=== PATIENT | female | born 1980 | race Caucasian/White ===

== ENCOUNTER 2017-06-19 20:22 | Emergency (ER) | payer MEDICAID ==
[~2017-06-19] VITALS: Ht 144.8 cm; Wt 73.0 kg
[~2017-06-19 20:22] MED LIST: ALB0.5UD IH; ALBU18HF2 IH; ALBU6.7H INH; AMOX500C2 PO; DIPH-423 PO; EPIN0.3P8 IM; FAMO40TA73 PO; ONDA4TAB12 PO; PRED50TA PO
[2017-06-19] MEDS ORDERED: ondansetron/PF 4mg/2ml inj IV ONE (21:20)
[2017-06-19] MEDS ORDERED: pantoprazole 40 MG vial IV ONE (21:20)
[2017-06-19] MEDS ORDERED: normal saline 1000ML IV soln IVB ONE (21:20)
[2017-06-19 21:34] LABS: BASOPHILS % (AUTO) 0.1 % (0-1); EOSINOPHILS # (AUTO) 0.2 X10'3 (0-0.9); EOSINOPHILS % (AUTO) 1.7 % (0-6); HEMOGLOBIN 11.4 g/dl (12.0-16.0); LYMPHOCYTES # (AUTO) 1.6 X10'3 (1.1-4.8); LYMPHOCYTES % (AUTO) 14.4 % (21-51); MEAN CORPUSCULAR HEMOGLOBIN 31.1 PG (27.0-31.0); MEAN CORPUSCULAR HGB CONC 34.4 % (33.0-36.5); MEAN CORPUSCULAR VOLUME 90.4 FL (78-98); MEAN PLATELET VOLUME 8.5 FL (7.4-10.4); MONOCYTES # (AUTO) 0.5 X10'3 (0-0.9); MONOCYTES % (AUTO) 4.4 % (2-12); NEUTROPHILS % (AUTO) 79.4 % (42-75); PLATELET COUNT 263 X10'3 (140-440); RED BLOOD COUNT 3.65 X10'6 (4.20-5.60); RED CELL DISTRIBUTION WIDTH 13.1 % (11.5-14.5); WHITE BLOOD COUNT 11.3 X10'3 (4.5-11.0)
[2017-06-19 21:46] LABS: INR 1.1 INR; PROTHROMBIN TIME 10.9 SECONDS (9.0-12.0)
[2017-06-19 21:49] LABS: ALANINE AMINOTRANSFERASE 23 U/L (12-78); ALBUMIN 3.5 G/DL (3.4-5.0); ALBUMIN/GLOBULIN RATIO 0.7 (1.1-1.5); ALKALINE PHOSPHATASE 62 IU/L (46-116); ASPARTATE AMINO TRANSFERASE 21 U/L (10-37); BILIRUBIN,TOTAL 0.3 MG/DL (0.1-1.0); BLOOD UREA NITROGEN 15 MG/DL (7-18); BUN/CREATININE RATIO 18.8 (6.6-38.0); CALCIUM 8.6 MG/DL (8.5-10.1); CHLORIDE 101 MMOL/L (99-107); GLUCOSE 87 MG/DL (70-104); LIPASE 98 U/L (73-393); POTASSIUM 3.7 MMOL/L (3.5-5.1); TOTAL CARBON DIOXIDE 26.3 MMOL/L (24-32); TOTAL PROTEIN 8.6 G/DL (6.4-8.2); eGFR 82 ML/MIN
[2017-06-19 21:52] LABS: SODIUM 138 MMOL/L (135-145)
[2017-06-19 21:57] LABS: ANION GAP 11 (8-16)
[2017-06-19 22:35] LABS: URINE HCG NEGATIVE (NEG)
[2017-06-19 22:36] LABS: CLARITY,URINE CLEAR (Clear); COLOR,URINE YELLOW (Yellow); GLUCOSE, URINE NEGATIVE (Neg); KETONES,URINE NEGATIVE (Neg); LEUKOCYTE ESTERASE ,URINE SMALL (Neg); NITRITES, URINE NEGATIVE (Neg); OCCULT BLOOD,URINE NEGATIVE (Neg); PROTEIN,URINE NEGATIVE (Neg); UROBILINOGEN,URINE 0.2 E.U/dL (0.2-1.0)
[2017-06-19 22:38] LABS: UA COLLECTION TYPE CLN CATCH MIDSTREAM
[2017-06-19 22:47] LABS: RBC,URINE 0-2 /HPF (0-2)
[2017-06-19 22:48] LABS: BACTERIA,URINE 1+ /HPF (Neg); SQUAMOUS EPITHELIAL CELL,UR MODERATE /LPF (FEW)
[2017-06-19 23:00] LABS: TOTAL CELLS COUNTED 100
[2017-06-19 23:01] LABS: PLATELET ESTIMATE NORMAL; TOXIC GRANULATION 1+
[2017-06-19] MEDS ORDERED: iohexol 300mg/ml 100ml inj. ONE (23:25)
[2017-06-19] MEDS ORDERED: dicyclomine 10mg/ml 2ml ampule IM ONE (23:55)
[2017-06-20] MEDS ORDERED: ONDA4TAB12 PO (00:22)
[2017-06-20] MEDS ORDERED: DICY10CA88 PO (00:22)
[2017-06-20] MEDS ORDERED: TRAM50TA2 PO (00:48)
[2017-06-20] MEDS ORDERED: CIPR-230 PO (00:48)
[2017-06-20] MEDS ORDERED: METR500T4 PO (00:48)
[2017-06-20 01:07] VITALS: BP 97/58
== END 2017-06-20 01:10 | disposition home or self-care (01) ==
LOC: ER 20:23
DX: K52.9 Noninfective gastroenteritis and colitis, unspecified (principal); J45.909 Unspecified asthma, uncomplicated; Z56.0 Unemployment, unspecified; Z88.6 Allergy status to analgesic agent; Z79.899 Other long term (current) drug therapy
CPT/HCPCS: 36415; 74177; 80053; 81001; 81025; 83690; 85025; 85610; 87045; 87046; 87088; 96361; 96372; 96374; 96375; 99285; C9113; J0500; J2405; J7030; Q9967; 87324; 87449

== ENCOUNTER 2017-09-23 12:35 | Emergency (ER) | payer MEDICAID ==
[~2017-09-23] VITALS: Ht 144.8 cm; Wt 70.4 kg
[~2017-09-23 12:35] MED LIST changes: +DICY10CA88 PO
[2017-09-23] MEDS ORDERED: ondansetron/PF 4mg/2ml inj IV ONE (13:00)
[2017-09-23] MEDS ORDERED: normal saline 1000ML IV soln IVB ONE (13:00)
[2017-09-23 13:13] LABS: URINE HCG NEGATIVE (NEG)
[2017-09-23 13:16] LABS: COLOR,URINE YELLOW (Yellow); GLUCOSE, URINE NEGATIVE (Neg); KETONES,URINE TRACE mg/dl (Neg); LEUKOCYTE ESTERASE ,URINE SMALL (Neg); NITRITES, URINE POSITIVE (Neg); OCCULT BLOOD,URINE TRACE-INTACT (Neg); PROTEIN,URINE 100 mg/dl (Neg); UROBILINOGEN,URINE 0.2 E.U/dL (0.2-1.0)
[2017-09-23 13:19] LABS: UA COLLECTION TYPE VOIDED
[2017-09-23 13:21] LABS: CLARITY,URINE CLOUDY (Clear)
[2017-09-23 13:22] LABS: BASOPHILS % (AUTO) 0 % (0-1); EOSINOPHILS % (AUTO) 0.2 % (0-6); HEMATOCRIT 34.6 % (35.0-45.0); HEMOGLOBIN 11.9 g/dl (12.0-16.0); LYMPHOCYTES # (AUTO) 0.6 X10'3 (1.1-4.8); LYMPHOCYTES % (AUTO) 4.7 % (21-51); MEAN CORPUSCULAR HEMOGLOBIN 31.1 PG (27.0-31.0); MEAN CORPUSCULAR HGB CONC 34.4 % (33.0-36.5); MEAN CORPUSCULAR VOLUME 90.3 FL (78-98); MEAN PLATELET VOLUME 8.4 FL (7.4-10.4); MONOCYTES # (AUTO) 0.2 X10'3 (0-0.9); MONOCYTES % (AUTO) 1.8 % (2-12); NEUTROPHILS # (AUTO) 12.7 X10'3 (1.8-7.7); NEUTROPHILS % (AUTO) 93.3 % (42-75); PLATELET COUNT 251 X10'3 (140-440); RED BLOOD COUNT 3.83 X10'6 (4.20-5.60); RED CELL DISTRIBUTION WIDTH 13.6 % (11.5-14.5); WHITE BLOOD COUNT 13.6 X10'3 (4.5-11.0)
[2017-09-23 13:25] LABS: BACTERIA,URINE 2+ /HPF (Neg); RBC,URINE 0-2 /HPF (0-2); SQUAMOUS EPITHELIAL CELL,UR MODERATE /LPF (FEW)
[2017-09-23 13:26] LABS: MUCUS STRANDS FEW /LPF (Neg); WBC CLUMPS,URINE FEW /HPF (NEGATIVE)
[2017-09-23 13:34] LABS: ALANINE AMINOTRANSFERASE 24 U/L (12-78); ALBUMIN 3.5 G/DL (3.4-5.0); ALBUMIN/GLOBULIN RATIO 0.7 (1.1-1.5); ALKALINE PHOSPHATASE 78 IU/L (46-116); ANION GAP 12 (8-16); ASPARTATE AMINO TRANSFERASE 21 U/L (10-37); BILIRUBIN,TOTAL 0.7 MG/DL (0.1-1.0); BLOOD UREA NITROGEN 21 MG/DL (7-18); BUN/CREATININE RATIO 21.2 (6.6-38.0); CALCIUM 7.9 MG/DL (8.5-10.1); CHLORIDE 97 MMOL/L (99-107); CREATININE 0.99 MG/DL (0.40-0.90); GLUCOSE 122 MG/DL (70-104); LIPASE 87 U/L (73-393); POTASSIUM 3.2 MMOL/L (3.5-5.1); SODIUM 134 MMOL/L (135-145); TOTAL CARBON DIOXIDE 24.6 MMOL/L (24-32); TOTAL PROTEIN 8.4 G/DL (6.4-8.2); eGFR 63 ML/MIN
[2017-09-23] MEDS ORDERED: potassium Cl oral solution 20 MEQ/15 ML PO ONE (14:20)
[2017-09-23] MEDS ORDERED: morphine 4 MG/ML inj SYRINge IV ONE (14:25)
[2017-09-23] MEDS ORDERED: ONDA4TAB9 SL (14:26)
[2017-09-23] MEDS ORDERED: BACDS PO (14:26)
[2017-09-23 15:17] VITALS: BP 105/60
[2017-09-23 15:40] LABS: BANDS% (MANUAL) 8 % (0-10); NEUTROPHILS % (MANUAL) 88 % (42-75); TOTAL CELLS COUNTED 100
[2017-09-23 15:41] LABS: LYMPHOCYTES % (MANUAL) 3 % (21-51); MONOCYTES % (MANUAL) 1 % (2-12); PLATELET ESTIMATE NORMAL
[2017-09-23 15:42] LABS: LARGE PLATELETS FEW; STOMATOCYTES 1+; TOXIC VACUOLATION FEW
== END 2017-09-23 15:18 | disposition home or self-care (01) ==
LOC: ER 12:36
DX: K52.9 Noninfective gastroenteritis and colitis, unspecified (principal); N39.0 Urinary tract infection, site not specified; E86.0 Dehydration; E87.5 Hyperkalemia; J45.909 Unspecified asthma, uncomplicated; Z88.6 Allergy status to analgesic agent; Z79.899 Other long term (current) drug therapy; Z56.0 Unemployment, unspecified
CPT/HCPCS: 36415; 74176; 80053; 81001; 81025; 83690; 85025; 87088; 96361; 96374; 96375; 99285; J2270; J2405; J7030; 87077; 87186

== ENCOUNTER 2018-01-31 15:27 | Inpatient (IN) | payer MEDICAID ==
[~2018-01-31] VITALS: Ht 144.8 cm; Wt 73.9 kg
[~2018-01-31 15:27] MED LIST changes: +CEPH-572 PO
[2018-01-31 16:40] LABS: BASOPHILS # (AUTO) 0.1 X10'3 (0-0.2); BASOPHILS % (AUTO) 0.2 % (0-1); EOSINOPHILS # (AUTO) 0.5 X10'3 (0-0.9); EOSINOPHILS % (AUTO) 1.7 % (0-6); HEMATOCRIT 25.2 % (35.0-45.0); HEMOGLOBIN 8.3 g/dl (12.0-16.0); LYMPHOCYTES # (AUTO) 2.4 X10'3 (1.1-4.8); LYMPHOCYTES % (AUTO) 8.5 % (21-51); MEAN CORPUSCULAR HGB CONC 32.9 % (33.0-36.5); MEAN PLATELET VOLUME 7.3 FL (7.4-10.4); MONOCYTES # (AUTO) 1.6 X10'3 (0-0.9); MONOCYTES % (AUTO) 5.7 % (2-12); NEUTROPHILS # (AUTO) 24.2 X10'3 (1.8-7.7); NEUTROPHILS % (AUTO) 83.9 % (42-75); PLATELET COUNT 469 X10'3 (140-440); RED BLOOD COUNT 2.77 X10'6 (4.20-5.60); RED CELL DISTRIBUTION WIDTH 14.2 % (11.5-14.5)
[2018-01-31 16:45] LABS: WHITE BLOOD COUNT 28.9 X10'3 (4.5-11.0)
[2018-01-31] MEDS ORDERED: HYDROcodone/acetaminophen 10/325mg tab PO ONE (16:55)
[2018-01-31 16:56] LABS: ALANINE AMINOTRANSFERASE 43 U/L (12-78); ALBUMIN/GLOBULIN RATIO 0.3 (1.1-1.5); ALKALINE PHOSPHATASE 197 IU/L (46-116); ANION GAP 11 (8-16); ASPARTATE AMINO TRANSFERASE 59 U/L (10-37); BLOOD UREA NITROGEN 26 MG/DL (7-18); BUN/CREATININE RATIO 26.5 (6.6-38.0); CALCIUM 9.1 MG/DL (8.5-10.1); CHLORIDE 98 MMOL/L (99-107); CREATININE 0.98 MG/DL (0.40-0.90); GLUCOSE 105 MG/DL (70-104); POTASSIUM 3.1 MMOL/L (3.5-5.1); SODIUM 133 MMOL/L (135-145); TOTAL CARBON DIOXIDE 23.8 MMOL/L (24-32); TOTAL PROTEIN 7.9 G/DL (6.4-8.2); eGFR 64 ML/MIN
[2018-01-31] MEDS ORDERED: iohexol 300mg/ml 100ml inj. ONE (17:03)
[2018-01-31 17:13] LABS: PLATELET ESTIMATE NORMAL; TOTAL CELLS COUNTED 100
[2018-01-31 17:14] LABS: TOXIC VACUOLATION FEW
[2018-01-31] MEDS ORDERED: potassium Cl 20 mEq SR tablet PO STA (17:19)
[2018-01-31] MEDS ORDERED: normal saline 1000ML IV soln IVB ONE (17:20)
[2018-01-31] MEDS ORDERED: normal saline 1000ML IV soln IV ONE (17:20)
[2018-01-31] MEDS ORDERED: vancomycin/NS 1 GM ADD-VANTAGE 250 ML X 1 DOSE IV ONE (17:50)
[2018-01-31 18:14] LABS: URINE HCG NEGATIVE (NEG)
[2018-01-31 18:27] LABS: URINE AMPHETAMINE SCREEN NEGATIVE (Neg); URINE BARBITUATE SCREEN NEGATIVE (Neg); URINE BENZODIAZEPINES SCREEN NEGATIVE (Neg); URINE CANNABINOID SCREEN NEGATIVE (Neg); URINE COCAINE SCREEN NEGATIVE (Neg); URINE METHADONE SCREEN NEGATIVE (Neg); URINE OPIATE SCREEN NEGATIVE (Neg); URINE PHENCYCLIDINE SCREEN NEGATIVE (Neg)
[2018-01-31 18:44] LABS: CLARITY,URINE SLIGHTLY CLOUDY (Clear); COLOR,URINE YELLOW (Yellow); GLUCOSE, URINE NEGATIVE (Neg); KETONES,URINE NEGATIVE (Neg); LEUKOCYTE ESTERASE ,URINE NEGATIVE (Neg); NITRITES, URINE NEGATIVE (Neg); OCCULT BLOOD,URINE NEGATIVE (Neg); PROTEIN,URINE 30 mg/dl (Neg)
[2018-01-31 18:45] LABS: UA COLLECTION TYPE CLN CATCH MIDSTREAM
[2018-01-31 18:52] LABS: BACTERIA,URINE 2+ /HPF (Neg); RBC,URINE NONE SEEN /HPF (0-2); SQUAMOUS EPITHELIAL CELL,UR MANY /LPF (FEW); WBC,URINE 0-4 /HPF (0-4)
[2018-01-31 18:53] LABS: MUCUS STRANDS FEW /LPF (Neg); TRANSITIONAL EPI CELLS,URINE FEW /HPF
[2018-01-31 18:54] LABS: FINE GRANULAR CAST 0-3 /LPF (NEGATIVE)
[2018-01-31] MEDS ORDERED: CEPH-572 PO (19:41)
[2018-01-31] MEDS ORDERED: IBUP-1984 PO (19:43)
[2018-01-31] MEDS ORDERED: potassium Cl 40MEQ/NS 500ml 500 ML IV PRN ×2 (20:20)
[2018-01-31] MEDS ORDERED: HYDROcodone/acetaminophen 5mg/325mg tablet PO PRN (20:20)
[2018-01-31] MEDS ORDERED: acetaminophen 325mg tablet PO PRN (20:20)
[2018-01-31] MEDS ORDERED: potassium Cl 20 mEq SR tablet PO PRN ×2 (20:20)
[2018-01-31] MEDS ORDERED: magnesium hydroxide 30ml (MOM) UD suspension PO PRN (20:20)
[2018-01-31] MEDS: normal saline 1000ml 1,000 ML IV SCH ×2 (20:45→22:03)
[2018-01-31] MEDS ORDERED: albuterol 2.5 MG/3 ML nebule NEB PRN (20:55)
[2018-01-31] MEDS ORDERED: temazepam 15mg capsule PO PRN (21:00)
[2018-01-31 21:45] VITALS: BP 106/68
[2018-01-31] MEDS: HYDROcodone/acetaminophen 10/325mg tab PO PRN (22:05)
[2018-01-31 23:00] VITALS: BP 102/65
[2018-02-01] MEDS: HYDROcodone/acetaminophen 10/325mg tab PO PRN ×4 (02:41→19:26)
[2018-02-01 03:00] VITALS: BP 105/66
[2018-02-01 06:00] VITALS: BP 98/57
[2018-02-01 06:51] LABS: BASOPHILS % (AUTO) 0.1 % (0-1); EOSINOPHILS # (AUTO) 0.6 X10'3 (0-0.9); EOSINOPHILS % (AUTO) 2.4 % (0-6); HEMATOCRIT 24.3 % (35.0-45.0); HEMOGLOBIN 7.9 g/dl (12.0-16.0); LYMPHOCYTES # (AUTO) 1.8 X10'3 (1.1-4.8); LYMPHOCYTES % (AUTO) 7.8 % (21-51); MEAN CORPUSCULAR HEMOGLOBIN 30.2 PG (27.0-31.0); MEAN CORPUSCULAR HGB CONC 32.8 % (33.0-36.5); MEAN CORPUSCULAR VOLUME 92.3 FL (78-98); MEAN PLATELET VOLUME 7.7 FL (7.4-10.4); MONOCYTES # (AUTO) 1.6 X10'3 (0-0.9); MONOCYTES % (AUTO) 6.8 % (2-12); NEUTROPHILS # (AUTO) 19.5 X10'3 (1.8-7.7); NEUTROPHILS % (AUTO) 82.9 % (42-75); PLATELET COUNT 474 X10'3 (140-440); RED BLOOD COUNT 2.63 X10'6 (4.20-5.60); RED CELL DISTRIBUTION WIDTH 14.8 % (11.5-14.5); WHITE BLOOD COUNT 23.5 X10'3 (4.5-11.0)
[2018-02-01 07:12] LABS: ALBUMIN 1.8 G/DL (3.4-5.0); ANION GAP 10 (8-16); BLOOD UREA NITROGEN 20 MG/DL (7-18); BUN/CREATININE RATIO 23.3 (6.6-38.0); CALCIUM 8.9 MG/DL (8.5-10.1); CHLORIDE 101 MMOL/L (99-107); CREATININE 0.86 MG/DL (0.40-0.90); GLUCOSE 81 MG/DL (70-104); SODIUM 133 MMOL/L (135-145); TOTAL CARBON DIOXIDE 21.6 MMOL/L (24-32); eGFR 75 ML/MIN
[2018-02-01] MEDS: vancomycin/NS 1 GM ADD-VANTAGE 250 ML IV SCH ×2 (07:35→19:27)
[2018-02-01] MEDS: levoFLOXACIN-Levaquin 750MG/D5 150 ML IV SCH (07:35)
[2018-02-01] MEDS: enoxaparin 40mg/0.4ml syringe SUBCUT SCH (07:36)
[2018-02-01] MEDS: mag hydrox/Alum hydrox/simeth 30ml oral suspension PO PRN ×2 (07:37→14:05)
[2018-02-01] MEDS: K and/or MAG REPLACEMENT MC SCH (08:00)
[2018-02-01] MEDS ORDERED: morphine 4 MG/ML inj SYRINge IV PRN (08:30)
[2018-02-01] MEDS ORDERED: pneumococcal 23-VAL P-sac vacc 25 mcg/0.5ml vial IMVAC ONE (10:00)
[2018-02-01 11:00] VITALS: BP 92/42
[2018-02-01] MEDS ORDERED: iohexol 300mg/ml 100ml inj. ONE (12:38)
[2018-02-01 15:00] VITALS: BP 113/66
[2018-02-01] MEDS: ondansetron/PF 4mg/2ml inj IV PRN (15:03)
[2018-02-01] MEDS: normal saline 1000ml 1,000 ML IV SCH (16:17)
[2018-02-01 18:00] VITALS: BP 102/55
[2018-02-01 22:00] VITALS: BP 110/59
[2018-02-02] MEDS: HYDROcodone/acetaminophen 10/325mg tab PO PRN ×3 (00:26→22:52)
[2018-02-02] MEDS: normal saline 1000ml 1,000 ML IV SCH ×3 (01:00→22:17)
[2018-02-02 02:00] VITALS: BP 107/57
[2018-02-02 07:00] VITALS: BP 105/62
[2018-02-02] MEDS ORDERED: VANCOMYCIN LEVEL IV ONE (07:30)
[2018-02-02] MEDS: levoFLOXACIN-Levaquin 750MG/D5 150 ML IV SCH (07:47)
[2018-02-02] MEDS: vancomycin/NS 1 GM ADD-VANTAGE 250 ML IV SCH ×2 (07:47→19:41)
[2018-02-02] MEDS: enoxaparin 40mg/0.4ml syringe SUBCUT SCH (07:47)
[2018-02-02] MEDS: K and/or MAG REPLACEMENT MC SCH (08:00)
[2018-02-02 08:11] LABS: BASOPHILS # (AUTO) 0.1 X10'3 (0-0.2); BASOPHILS % (AUTO) 0.5 % (0-1); EOSINOPHILS # (AUTO) 0.4 X10'3 (0-0.9); EOSINOPHILS % (AUTO) 1.8 % (0-6); HEMOGLOBIN 7.9 g/dl (12.0-16.0); LYMPHOCYTES # (AUTO) 2.5 X10'3 (1.1-4.8); LYMPHOCYTES % (AUTO) 11.5 % (21-51); MEAN CORPUSCULAR HEMOGLOBIN 30.3 PG (27.0-31.0); MEAN CORPUSCULAR HGB CONC 33.1 % (33.0-36.5); MEAN CORPUSCULAR VOLUME 91.8 FL (78-98); MEAN PLATELET VOLUME 7.4 FL (7.4-10.4); MONOCYTES # (AUTO) 1.6 X10'3 (0-0.9); MONOCYTES % (AUTO) 7.5 % (2-12); NEUTROPHILS # (AUTO) 17.2 X10'3 (1.8-7.7); NEUTROPHILS % (AUTO) 78.7 % (42-75); PLATELET COUNT 465 X10'3 (140-440); RED BLOOD COUNT 2.61 X10'6 (4.20-5.60); RED CELL DISTRIBUTION WIDTH 14.6 % (11.5-14.5); WHITE BLOOD COUNT 21.9 X10'3 (4.5-11.0)
[2018-02-02 08:33] LABS: LARGE PLATELETS FEW; PLATELET ESTIMATE INCREASED; TOTAL CELLS COUNTED 100
[2018-02-02 08:36] LABS: ALBUMIN 1.8 G/DL (3.4-5.0); ANION GAP 10 (8-16); BLOOD UREA NITROGEN 15 MG/DL (7-18); BUN/CREATININE RATIO 16.3 (6.6-38.0); CALCIUM 8.8 MG/DL (8.5-10.1); CHLORIDE 98 MMOL/L (99-107); CREATININE 0.92 MG/DL (0.40-0.90); GLUCOSE 115 MG/DL (70-104); SODIUM 130 MMOL/L (135-145); TOTAL CARBON DIOXIDE 21.8 MMOL/L (24-32); VANCOMYCIN,TROUGH 16.5 UG/ML (6.0-14.0); eGFR 69 ML/MIN
[2018-02-02 11:00] VITALS: BP 103/66
[2018-02-02 15:00] VITALS: BP 104/62
[2018-02-02 18:00] VITALS: BP 106/88
[2018-02-02 23:00] VITALS: BP 110/67
[2018-02-03 02:58] VITALS: BP 102/54
[2018-02-03 05:19] LABS: BASOPHILS # (AUTO) 0.1 X10'3 (0-0.2); BASOPHILS % (AUTO) 0.3 % (0-1); EOSINOPHILS # (AUTO) 0.3 X10'3 (0-0.9); EOSINOPHILS % (AUTO) 1.8 % (0-6); LYMPHOCYTES # (AUTO) 1.4 X10'3 (1.1-4.8); LYMPHOCYTES % (AUTO) 8.2 % (21-51); MEAN CORPUSCULAR HEMOGLOBIN 30.4 PG (27.0-31.0); MEAN CORPUSCULAR HGB CONC 33.2 % (33.0-36.5); MEAN CORPUSCULAR VOLUME 91.5 FL (78-98); MEAN PLATELET VOLUME 7.7 FL (7.4-10.4); MONOCYTES # (AUTO) 0.9 X10'3 (0-0.9); MONOCYTES % (AUTO) 5.3 % (2-12); NEUTROPHILS # (AUTO) 14.5 X10'3 (1.8-7.7); NEUTROPHILS % (AUTO) 84.4 % (42-75); PLATELET COUNT 417 X10'3 (140-440); RED BLOOD COUNT 2.37 X10'6 (4.20-5.60); RED CELL DISTRIBUTION WIDTH 14.8 % (11.5-14.5); WHITE BLOOD COUNT 17.2 X10'3 (4.5-11.0)
[2018-02-03 05:22] LABS: HEMATOCRIT 21.7 % (35.0-45.0); HEMOGLOBIN 7.2 g/dl (12.0-16.0)
[2018-02-03 05:44] LABS: ALBUMIN 1.5 G/DL (3.4-5.0); ANION GAP 12 (8-16); BLOOD UREA NITROGEN 12 MG/DL (7-18); BUN/CREATININE RATIO 15.6 (6.6-38.0); CALCIUM 8.7 MG/DL (8.5-10.1); CHLORIDE 100 MMOL/L (99-107); CREATININE 0.77 MG/DL (0.40-0.90); GLUCOSE 130 MG/DL (70-104); POTASSIUM 3.6 MMOL/L (3.5-5.1); SODIUM 133 MMOL/L (135-145); TOTAL CARBON DIOXIDE 20.9 MMOL/L (24-32); eGFR 85 ML/MIN
[2018-02-03 07:00] VITALS: BP 112/71
[2018-02-03 07:00] LABS: PLATELET ESTIMATE NORMAL; TOTAL CELLS COUNTED 100
[2018-02-03] MEDS: enoxaparin 40mg/0.4ml syringe SUBCUT SCH (07:38)
[2018-02-03] MEDS: levoFLOXACIN-Levaquin 750MG/D5 150 ML IV SCH (07:38)
[2018-02-03] MEDS: normal saline 1000ml 1,000 ML IV SCH ×2 (07:39→19:45)
[2018-02-03] MEDS: K and/or MAG REPLACEMENT MC SCH (08:00)
[2018-02-03] MEDS: ondansetron/PF 4mg/2ml inj IV PRN ×2 (09:04→18:10)
[2018-02-03] MEDS: vancomycin/NS 1 GM ADD-VANTAGE 250 ML IV SCH ×2 (09:15→19:45)
[2018-02-03 11:00] VITALS: BP 117/69
[2018-02-03] MEDS ORDERED: Permethrin Cream 60gm TP ONE ×2 (11:45→21:00)
[2018-02-03 15:00] VITALS: BP 110/63
[2018-02-03 15:13] LABS: HIV ANTIBODY 1&2 RAPID NON-REACTIVE (Neg)
[2018-02-03] MEDS: HYDROcodone/acetaminophen 10/325mg tab PO PRN ×2 (15:39→19:51)
[2018-02-03 15:48] LABS: CREATINE KINASE 25 U/L (26-192)
[2018-02-03 19:00] VITALS: BP 107/58
[2018-02-03] MEDS ORDERED: pneumococcal 23-VAL P-sac vacc 25 mcg/0.5ml vial IMVAC ONE (19:40)
[2018-02-03 21:51] VITALS: BP 99/57
[2018-02-04] VITALS (12 sets, daily range): BP systolic 92–116; BP diastolic 53–67
[2018-02-04] MEDS: normal saline 1000ml 1,000 ML IV SCH ×2 (04:17→07:57)
[2018-02-04] MEDS: HYDROcodone/acetaminophen 10/325mg tab PO PRN ×2 (04:18→12:08)
[2018-02-04 07:31] LABS: BASOPHILS # (AUTO) 0.1 X10'3 (0-0.2); BASOPHILS % (AUTO) 0.4 % (0-1); EOSINOPHILS # (AUTO) 0.3 X10'3 (0-0.9); EOSINOPHILS % (AUTO) 2.5 % (0-6); LYMPHOCYTES # (AUTO) 1.4 X10'3 (1.1-4.8); LYMPHOCYTES % (AUTO) 10.3 % (21-51); MEAN CORPUSCULAR HEMOGLOBIN 30.2 PG (27.0-31.0); MEAN CORPUSCULAR HGB CONC 32.8 % (33.0-36.5); MEAN CORPUSCULAR VOLUME 91.9 FL (78-98); MEAN PLATELET VOLUME 7.9 FL (7.4-10.4); MONOCYTES # (AUTO) 0.9 X10'3 (0-0.9); MONOCYTES % (AUTO) 6.5 % (2-12); NEUTROPHILS # (AUTO) 10.8 X10'3 (1.8-7.7); NEUTROPHILS % (AUTO) 80.3 % (42-75); PLATELET COUNT 450 X10'3 (140-440); RED BLOOD COUNT 2.08 X10'6 (4.20-5.60); WHITE BLOOD COUNT 13.5 X10'3 (4.5-11.0)
[2018-02-04 07:35] LABS: ALBUMIN 1.6 G/DL (3.4-5.0); ANION GAP 12 (8-16); BLOOD UREA NITROGEN 12 MG/DL (7-18); BUN/CREATININE RATIO 11.9 (6.6-38.0); CALCIUM 8.3 MG/DL (8.5-10.1); CHLORIDE 99 MMOL/L (99-107); CREATININE 1.01 MG/DL (0.40-0.90); GLUCOSE 141 MG/DL (70-104); HEMATOCRIT 19.1 % (35.0-45.0); HEMOGLOBIN 6.3 g/dl (12.0-16.0); POTASSIUM 3.7 MMOL/L (3.5-5.1); SODIUM 133 MMOL/L (135-145); TOTAL CARBON DIOXIDE 22.5 MMOL/L (24-32); eGFR 62 ML/MIN
[2018-02-04] MEDS: lactobacillus rhamnosus 10,000 MMU CELLS/CAPSULE PO SCH ×2 (07:57→20:01)
[2018-02-04] MEDS: vancomycin/NS 1 GM ADD-VANTAGE 250 ML IV SCH ×2 (07:57→19:58)
[2018-02-04] MEDS: enoxaparin 40mg/0.4ml syringe SUBCUT SCH (07:58)
[2018-02-04] MEDS: K and/or MAG REPLACEMENT MC SCH (08:00)
[2018-02-04 09:32] LABS: % IRON SATURATION 13 % (11-46); IRON 26 UG/DL (49-151); TOTAL IRON BINDING CAPACITY 200 UG/DL (259-388)
[2018-02-04] MEDS: mag hydrox/Alum hydrox/simeth 30ml oral suspension PO PRN ×2 (11:23→16:08)
[2018-02-04] MEDS ORDERED: hydrOXYzine 25 MG tablet PO ONE (17:05)
[2018-02-04 17:17] LABS: BASOPHILS % (AUTO) 0.4 % (0-1); EOSINOPHILS # (AUTO) 0.3 X10'3 (0-0.9); EOSINOPHILS % (AUTO) 1.9 % (0-6); HEMATOCRIT 25.7 % (35.0-45.0); HEMOGLOBIN 8.5 g/dl (12.0-16.0); LYMPHOCYTES # (AUTO) 1.8 X10'3 (1.1-4.8); LYMPHOCYTES % (AUTO) 13.5 % (21-51); MEAN CORPUSCULAR HEMOGLOBIN 29.4 PG (27.0-31.0); MEAN CORPUSCULAR VOLUME 89.1 FL (78-98); MEAN PLATELET VOLUME 8.6 FL (7.4-10.4); MONOCYTES # (AUTO) 0.7 X10'3 (0-0.9); MONOCYTES % (AUTO) 5.4 % (2-12); NEUTROPHILS # (AUTO) 10.4 X10'3 (1.8-7.7); NEUTROPHILS % (AUTO) 78.8 % (42-75); PLATELET COUNT 381 X10'3 (140-440); RED BLOOD COUNT 2.88 X10'6 (4.20-5.60); RED CELL DISTRIBUTION WIDTH 16.9 % (11.5-14.5); WHITE BLOOD COUNT 13.2 X10'3 (4.5-11.0)
[2018-02-04 18:04] LABS: ANISOCYTOSIS 1+; PLATELET ESTIMATE NORMAL; TOTAL CELLS COUNTED 100
[2018-02-04 18:05] LABS: POLYCHROMASIA FEW; STOMATOCYTES 3+
[2018-02-04] MEDS: acetaminophen 325mg tablet PO PRN (18:34)
[2018-02-04] MEDS ORDERED: hydrOXYzine 25 MG tablet PO PRN (21:05)
[2018-02-04 22:17] LABS: CLARITY,URINE CLEAR (Clear); COLOR,URINE STRAW (Yellow); GLUCOSE, URINE NEGATIVE (Neg); KETONES,URINE NEGATIVE (Neg); LEUKOCYTE ESTERASE ,URINE NEGATIVE (Neg); NITRITES, URINE NEGATIVE (Neg); OCCULT BLOOD,URINE NEGATIVE (Neg); PROTEIN,URINE NEGATIVE (Neg); UROBILINOGEN,URINE 0.2 E.U/dL (0.2-1.0)
[2018-02-04 22:18] LABS: UA COLLECTION TYPE CLN CATCH MIDSTREAM
[2018-02-05] MEDS: normal saline 1000ml 1,000 ML IV SCH ×3 (00:45→20:49)
[2018-02-05] MEDS: HYDROcodone/acetaminophen 10/325mg tab PO PRN ×3 (00:45→22:19)
[2018-02-05 01:47] VITALS: BP 104/62
[2018-02-05 05:22] LABS: RPR Non Reactive (Non Reactive)
[2018-02-05 05:32] LABS: BASOPHILS % (AUTO) 0.3 % (0-1); EOSINOPHILS # (AUTO) 0.2 X10'3 (0-0.9); EOSINOPHILS % (AUTO) 1.9 % (0-6); HEMATOCRIT 25.1 % (35.0-45.0); HEMOGLOBIN 8.4 g/dl (12.0-16.0); LYMPHOCYTES # (AUTO) 1.1 X10'3 (1.1-4.8); LYMPHOCYTES % (AUTO) 11.6 % (21-51); MEAN CORPUSCULAR HEMOGLOBIN 29.8 PG (27.0-31.0); MEAN CORPUSCULAR HGB CONC 33.4 % (33.0-36.5); MEAN CORPUSCULAR VOLUME 89.1 FL (78-98); MEAN PLATELET VOLUME 7.5 FL (7.4-10.4); MONOCYTES # (AUTO) 0.7 X10'3 (0-0.9); MONOCYTES % (AUTO) 7.3 % (2-12); NEUTROPHILS # (AUTO) 7.7 X10'3 (1.8-7.7); NEUTROPHILS % (AUTO) 78.9 % (42-75); PLATELET COUNT 436 X10'3 (140-440); RED BLOOD COUNT 2.82 X10'6 (4.20-5.60); RED CELL DISTRIBUTION WIDTH 16.8 % (11.5-14.5); WHITE BLOOD COUNT 9.7 X10'3 (4.5-11.0)
[2018-02-05 05:39] LABS: ALBUMIN 1.8 G/DL (3.4-5.0); ANION GAP 10 (8-16); BLOOD UREA NITROGEN 14 MG/DL (7-18); BUN/CREATININE RATIO 15.2 (6.6-38.0); CALCIUM 8.6 MG/DL (8.5-10.1); CHLORIDE 97 MMOL/L (99-107); CREATININE 0.92 MG/DL (0.40-0.90); GLUCOSE 101 MG/DL (70-104); POTASSIUM 3.5 MMOL/L (3.5-5.1); SODIUM 133 MMOL/L (135-145); TOTAL CARBON DIOXIDE 25.6 MMOL/L (24-32); eGFR 69 ML/MIN
[2018-02-05] MEDS: acetaminophen 325mg tablet PO PRN ×2 (06:20→19:03)
[2018-02-05 06:44] LABS: ANISOCYTOSIS 1+; LARGE PLATELETS FEW; PLATELET ESTIMATE NORMAL; TOTAL CELLS COUNTED 100
[2018-02-05 06:45] LABS: POLYCHROMASIA FEW
[2018-02-05] MEDS: K and/or MAG REPLACEMENT MC SCH (08:00)
[2018-02-05] MEDS: vancomycin/NS 1 GM ADD-VANTAGE 250 ML IV SCH ×2 (08:21→19:02)
[2018-02-05] MEDS: lactobacillus rhamnosus 10,000 MMU CELLS/CAPSULE PO SCH ×2 (08:21→19:02)
[2018-02-05 08:30] LABS: ALANINE AMINOTRANSFERASE 32 U/L (12-78); ALBUMIN/GLOBULIN RATIO 0.3 (1.1-1.5); ALKALINE PHOSPHATASE 158 IU/L (46-116); ASPARTATE AMINO TRANSFERASE 54 U/L (10-37); BILIRUBIN,DIRECT 0.2 MG/DL (0-0.3); BILIRUBIN,TOTAL 0.4 MG/DL (0.1-1.0); TOTAL PROTEIN 7.3 G/DL (6.4-8.2)
[2018-02-05 11:00] VITALS: BP 100/53
[2018-02-05 15:00] VITALS: BP 99/60
[2018-02-05 18:00] VITALS: BP 94/56
[2018-02-05 22:00] VITALS: BP 93/60
[2018-02-06] VITALS (7 sets, daily range): BP systolic 94–124; BP diastolic 41–67
[2018-02-06] MEDS: normal saline 1000ml 1,000 ML IV SCH ×4 (01:55→20:19)
[2018-02-06] MEDS: acetaminophen 325mg tablet PO PRN (03:17)
[2018-02-06] MEDS: HYDROcodone/acetaminophen 10/325mg tab PO PRN ×2 (07:18→20:19)
[2018-02-06] MEDS: lactobacillus rhamnosus 10,000 MMU CELLS/CAPSULE PO SCH ×2 (07:19→20:19)
[2018-02-06] MEDS: vancomycin/NS 1 GM ADD-VANTAGE 250 ML IV SCH ×2 (07:20→20:18)
[2018-02-06] MEDS: K and/or MAG REPLACEMENT MC SCH (08:00)
[2018-02-06 10:18] LABS: BASOPHILS % (AUTO) 0.3 % (0-1); EOSINOPHILS # (AUTO) 0.1 X10'3 (0-0.9); EOSINOPHILS % (AUTO) 1.5 % (0-6); HEMATOCRIT 22.2 % (35.0-45.0); HEMOGLOBIN 7.5 g/dl (12.0-16.0); LYMPHOCYTES % (AUTO) 12.4 % (21-51); MEAN CORPUSCULAR HEMOGLOBIN 29.8 PG (27.0-31.0); MEAN CORPUSCULAR HGB CONC 33.6 % (33.0-36.5); MEAN CORPUSCULAR VOLUME 88.7 FL (78-98); MEAN PLATELET VOLUME 7.3 FL (7.4-10.4); MONOCYTES # (AUTO) 0.4 X10'3 (0-0.9); MONOCYTES % (AUTO) 4.9 % (2-12); NEUTROPHILS # (AUTO) 6.5 X10'3 (1.8-7.7); NEUTROPHILS % (AUTO) 80.9 % (42-75); PLATELET COUNT 351 X10'3 (140-440); RED BLOOD COUNT 2.51 X10'6 (4.20-5.60); WHITE BLOOD COUNT 8.1 X10'3 (4.5-11.0)
[2018-02-06 10:33] LABS: ALANINE AMINOTRANSFERASE 25 U/L (12-78); ALBUMIN 1.7 G/DL (3.4-5.0); ALBUMIN/GLOBULIN RATIO 0.3 (1.1-1.5); ALKALINE PHOSPHATASE 130 IU/L (46-116); ANION GAP 8 (8-16); ASPARTATE AMINO TRANSFERASE 38 U/L (10-37); BILIRUBIN,TOTAL 0.3 MG/DL (0.1-1.0); BLOOD UREA NITROGEN 12 MG/DL (7-18); BUN/CREATININE RATIO 13.2 (6.6-38.0); CALCIUM 7.5 MG/DL (8.5-10.1); CHLORIDE 98 MMOL/L (99-107); CREATINE KINASE 26 U/L (26-192); CREATININE 0.91 MG/DL (0.40-0.90); GLUCOSE 128 MG/DL (70-104); SODIUM 131 MMOL/L (135-145); TOTAL PROTEIN 6.8 G/DL (6.4-8.2); eGFR 70 ML/MIN
[2018-02-06] MEDS ORDERED: HYDR-3686 PO (13:40)
[2018-02-06] MEDS ORDERED: ONDA4TAB9 PO (13:40)
[2018-02-06] MEDS ORDERED: HYDR-3972 PO (13:40)
[2018-02-07] MEDS: normal saline 1000ml 1,000 ML IV SCH ×2 (00:40→06:23)
[2018-02-07 03:00] VITALS: BP 105/55
[2018-02-07] MEDS: HYDROcodone/acetaminophen 10/325mg tab PO PRN ×3 (03:00→12:38)
[2018-02-07 03:27] LABS: BASOPHILS % (AUTO) 0.3 % (0-1); EOSINOPHILS # (AUTO) 0.1 X10'3 (0-0.9); EOSINOPHILS % (AUTO) 0.8 % (0-6); HEMATOCRIT 25.4 % (35.0-45.0); HEMOGLOBIN 8.4 g/dl (12.0-16.0); LYMPHOCYTES # (AUTO) 1.8 X10'3 (1.1-4.8); LYMPHOCYTES % (AUTO) 16.4 % (21-51); MEAN CORPUSCULAR HEMOGLOBIN 29.6 PG (27.0-31.0); MEAN CORPUSCULAR HGB CONC 33.3 % (33.0-36.5); MEAN CORPUSCULAR VOLUME 88.9 FL (78-98); MEAN PLATELET VOLUME 7.3 FL (7.4-10.4); MONOCYTES # (AUTO) 0.3 X10'3 (0-0.9); MONOCYTES % (AUTO) 2.6 % (2-12); NEUTROPHILS # (AUTO) 8.7 X10'3 (1.8-7.7); NEUTROPHILS % (AUTO) 79.9 % (42-75); PLATELET COUNT 340 X10'3 (140-440); RED BLOOD COUNT 2.85 X10'6 (4.20-5.60); RED CELL DISTRIBUTION WIDTH 16.6 % (11.5-14.5); WHITE BLOOD COUNT 10.9 X10'3 (4.5-11.0)
[2018-02-07 03:59] LABS: TOTAL CELLS COUNTED 100
[2018-02-07 04:01] LABS: ANISOCYTOSIS 1+; PLATELET ESTIMATE NORMAL; POLYCHROMASIA 1+
[2018-02-07 04:02] LABS: TOXIC GRANULATION 2+; TOXIC VACUOLATION 2+
[2018-02-07 06:00] VITALS: BP 107/55
[2018-02-07] MEDS: lactobacillus rhamnosus 10,000 MMU CELLS/CAPSULE PO SCH (07:17)
[2018-02-07] MEDS ORDERED: VANCOMYCIN LEVEL IV ONE (07:30)
[2018-02-07] MEDS: K and/or MAG REPLACEMENT MC SCH (08:00)
[2018-02-07] MEDS: vancomycin/NS 1 GM ADD-VANTAGE 250 ML IV SCH (08:00)
[2018-02-07 08:33] LABS: ALANINE AMINOTRANSFERASE 26 U/L (12-78); ALBUMIN 1.8 G/DL (3.4-5.0); ALBUMIN/GLOBULIN RATIO 0.3 (1.1-1.5); ALKALINE PHOSPHATASE 118 IU/L (46-116); ANION GAP 8 (8-16); ASPARTATE AMINO TRANSFERASE 40 U/L (10-37); BILIRUBIN,TOTAL 0.3 MG/DL (0.1-1.0); BLOOD UREA NITROGEN 18 MG/DL (7-18); CALCIUM 8.1 MG/DL (8.5-10.1); CHLORIDE 95 MMOL/L (99-107); CREATININE 0.82 MG/DL (0.40-0.90); GLUCOSE 95 MG/DL (70-104); POTASSIUM 4.1 MMOL/L (3.5-5.1); SODIUM 129 MMOL/L (135-145); TOTAL CARBON DIOXIDE 25.6 MMOL/L (24-32); VANCOMYCIN,TROUGH 19.8 UG/ML (6.0-14.0); eGFR 79 ML/MIN
[2018-02-07 11:00] VITALS: BP 101/51
[2018-02-08] MEDS ORDERED: PRED20TA PO (14:13)
== END 2018-02-07 16:20 | disposition home IV services (08) | DRG 720 ==
LOC: ER 15:28 → ED HOLD 20:17 → PCU 3S 21:32
PROVIDERS: ADMIT Hospitalist; ATTEND Family Medicine
PROC: BW211ZZ Computerized Tomography (CT Scan) of Abdomen and Pelvis using Low Osmolar Contrast (ICD-10-PCS; 2018-02-01)
PROC: 30233N1 Transfusion of Nonautologous Red Blood Cells into Peripheral Vein, Percutaneous Approach (ICD-10-PCS; principal; 2018-02-04)
PROC: 02HV33Z Insertion of Infusion Device into Superior Vena Cava, Percutaneous Approach (ICD-10-PCS; 2018-02-05)
PROC: B548ZZA Ultrasonography of Superior Vena Cava, Guidance (ICD-10-PCS; 2018-02-05)
DX: A41.9 Sepsis, unspecified organism (principal); I26.90 Septic pulmonary embolism without acute cor pulmonale; E43 Unspecified severe protein-calorie malnutrition; E87.1 Hypo-osmolality and hyponatremia; D63.8 Anemia in other chronic diseases classified elsewhere; E87.6 Hypokalemia; L03.114 Cellulitis of left upper limb; F31.9 Bipolar disorder, unspecified; J45.909 Unspecified asthma, uncomplicated; G89.29 Other chronic pain; N93.9 Abnormal uterine and vaginal bleeding, unspecified; R21 Rash and other nonspecific skin eruption; M54.5 Low back pain; Z56.0 Unemployment, unspecified; Z98.891 History of uterine scar from previous surgery; Z79.899 Other long term (current) drug therapy; Z88.6 Allergy status to analgesic agent; Z68.35 Body mass index [BMI] 35.0-35.9, adult
CPT/HCPCS: 36415; 36569; 71045; 71260; 73201; 74177; 76882; 76937; 80048; 80053; 80076; 80202; 80305; 81001; 81003; 81025; 82550; 82607; 83540; 83550; 83605; 84145; 85025; 86592; 86703; 86880; 86885; 86900; 86901; 86920; 87040; 87070; 87491; 93306; 93971; 94760; 96374; 99285; G0378; J1650; J1956; J2270; J2405; J3370; J7030; P9016; Q0177; Q2037; Q9967

== ENCOUNTER 2018-02-08 13:23 | Emergency (ER) | payer MEDICAID ==
[~2018-02-08] VITALS: Ht 144.8 cm; Wt 76.1 kg
[~2018-02-08 13:23] MED LIST changes: +HYDR-3686 PO; +HYDR-3972 PO; +IBUP-1984 PO; +ONDA4TAB9 PO
[2018-02-08] MEDS ORDERED: diphenhydrAMINE 50 mg/ml inj IV ONE (14:10)
[2018-02-08] MEDS ORDERED: dexamethasone sod phosphate 10mg/ml inj IV STA (14:10)
[2018-02-08] MEDS ORDERED: PRED20TA PO (14:13)
[2018-02-08 15:37] VITALS: BP 101/64
== END 2018-02-08 15:38 | disposition home or self-care (01) ==
LOC: ER 13:23
DX: L50.9 Urticaria, unspecified (principal); T36.8X5A Adverse effect of other systemic antibiotics, initial encounter; J45.909 Unspecified asthma, uncomplicated; Z86.14 Personal history of Methicillin resistant Staphylococcus aureus infection; Z88.6 Allergy status to analgesic agent; Z79.899 Other long term (current) drug therapy; Z56.0 Unemployment, unspecified; Y92.89 Other specified places as the place of occurrence of the external cause
CPT/HCPCS: 96374; 96375; 99284; J1100; J1200